=== PATIENT | male | born 1970 | race Caucasian/White ===

== ENCOUNTER 2021-11-05 07:57 | Inpatient (IN) | payer OTHER ==
[~2021-11-05] VITALS: Ht 188 cm; Wt 78.9 kg
[2021-11-05 13:49] LABS: HEMOGLOBIN 15.2 gm/dl (14.0-17.5); RED BLOOD COUNT 5.14 M/UL (4.20-5.50); WHITE BLOOD COUNT 13.9 K/UL (4.5-11.0)
[2021-11-05] MEDS ORDERED: FAMOTIDINE20 MG PO (15:06)
[2021-11-05] MEDS ORDERED: INSULIN LI100 UNIT/1 SQ (15:09)
[2021-11-06 06:50] LABS: HEMOGLOBIN 14.5 gm/dl (14.0-17.5); RED BLOOD COUNT 4.95 M/UL (4.20-5.50)
[2021-11-06 06:53] LABS: WHITE BLOOD COUNT 8.2 K/UL (4.5-11.0)
--- NOTE | 2021-11-06 20:49 | NUR ---
PATIENT WAS IN HIS ROOM, VERY ANXIOUS, PACING BACK AND FORTH. 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 PATIENT REQUESTING TO SPEAK TO AERODYNAMICS PROFESSOR. PATIENT STATING THAT IF HE DID NOT SPEAK TO AERODYNAMICS PROFESSOR, THEN HE WOULD LEAVE AMA. NOTIFIED AERODYNAMICS PROFESSOR (ALEXANDRU) OF SITUATION. AERODYNAMICS PROFESSOR STATED THAT SHE WOULD COME TALK TO PATIENT.
[2021-11-08 06:27] LABS: HEMOGLOBIN 15.5 gm/dl (14.0-17.5); RED BLOOD COUNT 5.27 M/UL (4.20-5.50); WHITE BLOOD COUNT 8.9 K/UL (4.5-11.0)
[2021-11-08 06:51] LABS: BUN/CREATININE RATIO 17 (0-10)
[2021-11-08] MEDS ORDERED: ALDACTONE 25MG25 MG PO (10:19)
[2021-11-08] MEDS ORDERED: LEVOFLOXACIN500 MG PO (10:19)
[2021-11-08] MEDS ORDERED: ATORVASTATIN CA20 MG PO (10:19)
[2021-11-08] MEDS ORDERED: FUROSEMIDE20 MG PO (10:19)
[2021-11-08] MEDS ORDERED: LOPRESSOR 25 MG25 MG PO (10:19)
[2021-11-08] MEDS ORDERED: JARDIANCE10 MG PO (10:19)
[2021-11-08] MEDS ORDERED: LANTUS INS100 UTS/M1 SC (10:19)
[2021-11-08] MEDS ORDERED: ASPIRIN EC81 MG PO (10:19)
[2021-11-08] MEDS ORDERED: COZAAR 25MG TAB25 MG PO (10:19)
== END 2021-11-08 15:38 | disposition home or self-care (01) | DRG 286 ==
LOC: MED SURG 4 11:44
PROVIDERS: Internal Medicine; Physician Assistant; ADMIT Internal Medicine
PROC: 4A023N7 Measurement of Cardiac Sampling and Pressure, Left Heart, Percutaneous Approach (ICD-10-PCS; principal; 2021-11-07)
PROC: B2111ZZ Fluoroscopy of Multiple Coronary Arteries using Low Osmolar Contrast (ICD-10-PCS; 2021-11-07)
DX: I13.0 Hypertensive heart and chronic kidney disease with heart failure and stage 1 through stage 4 chronic kidney disease, or unspecified chronic kidney disease (principal); I50.23 Acute on chronic systolic (congestive) heart failure; J18.9 Pneumonia, unspecified organism; N17.9 Acute kidney failure, unspecified; I25.110 Atherosclerotic heart disease of native coronary artery with unstable angina pectoris; F17.200 Nicotine dependence, unspecified, uncomplicated; E11.9 Type 2 diabetes mellitus without complications; F15.10 Other stimulant abuse, uncomplicated; I25.5 Ischemic cardiomyopathy; I34.0 Nonrheumatic mitral (valve) insufficiency; N18.9 Chronic kidney disease, unspecified; Z96.41 Presence of insulin pump (external) (internal); B18.2 Chronic viral hepatitis C; Z79.4 Long term (current) use of insulin; Z95.1 Presence of aortocoronary bypass graft; Z88.8 Allergy status to other drugs, medicaments and biological substances; Z82.49 Family history of ischemic heart disease and other diseases of the circulatory system; I25.2 Old myocardial infarction; Z90.49 Acquired absence of other specified parts of digestive tract; Z98.890 Other specified postprocedural states; Z83.3 Family history of diabetes mellitus; Z83.6 Family history of other diseases of the respiratory system
CPT/HCPCS: 36415; 80048; 80053; 82550; 82553; 82962; 83036; 83735; 83880; 84484; 85025; 85027; 87040; 93005; 94664; 94760; 96372; 96374; 96375; 96376; 99152; 99153; C1769; C1894; G0378; G0379; J0696; J1160; J1644; J1650; J1940; J2250; J3010; J7040; Q9967

== ENCOUNTER → 2021-12-14 | Outpatient (CLI) | payer OTHER ==
[~2021-12-14] MED LIST: ALDACTONE 25MG25 MG PO; ASPIRIN EC81 MG PO; ATORVASTATIN CA20 MG PO; COZAAR 25MG TAB25 MG PO; FAMOTIDINE20 MG PO; FUROSEMIDE20 MG PO; INSULIN LI100 UNIT/1 SQ; JARDIANCE10 MG PO; LANTUS INS100 UTS/M1 SC; LEVOFLOXACIN500 MG PO; LOPRESSOR 25 MG25 MG PO
== END ==
LOC: NM 14:39
DX: I21.09 ST elevation (STEMI) myocardial infarction involving other coronary artery of anterior wall (principal)
CPT/HCPCS: 78452; A9505